=== PATIENT | female | born 1970 | race African-American/Black ===

== ENCOUNTER 2016-06-03 17:45 | Emergency (ER) | payer OTHER ==
--- NOTE | 2016-06-03 20:45 | RAD ---
PA AND LATERAL VIEWS OF CHEST: 06/03/2016 HISTORY: Fevers and chills for 3 days. FINDINGS: Two views of the chest demonstrate the lungs to be well-aerated. No evidence of active intrathoraci c disease seen. No evidence of effusions, pneumonia, or pneumothorax seen. IMPRESSION: Unremarkable two views chest. POS: [facility]
== END 2016-06-03 18:48 | disposition home or self-care (01) ==
LOC: NAV ERS 17:45
DX: J06.9 Acute upper respiratory infection, unspecified (principal); I10 Essential (primary) hypertension; E03.9 Hypothyroidism, unspecified; F31.9 Bipolar disorder, unspecified; F20.9 Schizophrenia, unspecified; Z79.899 Other long term (current) drug therapy
CPT/HCPCS: 71020; 93005

== ENCOUNTER 2016-08-23 13:28 | Emergency (ER) | payer OTHER ==
[2016-08-23] MEDS ORDERED: HYDROcodone/Acetaminophen 10/325 mg Tablet ONE (13:58)
[2016-08-23] MEDS ORDERED: Ibuprofen 800 MG TAB ONE (13:58)
--- NOTE | 2016-08-23 15:28 | RAD ---
LEFT HIP TWO VIEWS: History: 45-year-old female with left hip pain without known injury. FINDINGS: Very mild degenerative changes left hip joint. No fracture, dislocation, or other acute process. The re is a very slight bump on the lateral view at the subcapital region of the femoral neck. Thi s could possibly represent either a small focal degenerative osteophyte of a dysplastic bump that ca n be seen in association with femoral acetabular impingement. If that is a concern, follow up noneme rgent MRI study might be of benefit. IMPRESSION: Very mild degenerative changes left hip joint. Possible small dysplastic bump of the femoral neck wh ich could raise the possibility of femoral acetabular impingement. If that is a concern, follow non- emergent MRI. No fracture or dislocation. POS: [facility]
== END 2016-08-23 14:14 | disposition home or self-care (01) ==
LOC: NAV ERS 13:28
DX: M25.552 Pain in left hip (principal); F41.9 Anxiety disorder, unspecified; E66.9 Obesity, unspecified; G43.909 Migraine, unspecified, not intractable, without status migrainosus; E03.9 Hypothyroidism, unspecified; I10 Essential (primary) hypertension; F31.9 Bipolar disorder, unspecified; Z79.899 Other long term (current) drug therapy

== ENCOUNTER 2016-09-15 14:28 | Emergency (ER) | payer OTHER ==
[~2016-09-15 14:28] MED LIST: Iopamidol 370 76% 100 ML VIAL ONE
[2016-09-15] MEDS ORDERED: Sodium Chloride 0.9% 1,000 ML ONE (14:55)
[2016-09-15] MEDS ORDERED: Ondansetron HCl/PF 4 MG/2 ML Vial ONE (14:55)
[2016-09-15 15:04] LABS: Bilirubin Negative (Negative); Blood, Urine Negative (Negative); Clarity Clear (Clear); Glucose, Urine (Dipstick) Negative (Negative); Leukocyte Moderate (Negative); Nitrite Positive (Negative); Protein, Urine (Dipstick) Negative (Neg-Trace); Specific Gravity, Urine 1.015 (1.005-1.030); Urobilinogen 0.2 mg/dL (0.2-1.0); pH, Urine 7.5 (5.0-9.0)
[2016-09-15 15:11] LABS: Bacteria/HPF 3+ HPF (None Seen); RBC/HPF 0-3 HPF (0-3); Squamous Epithelial 0-3 HPF (0-3)
[2016-09-15 15:20] LABS: Pregnancy Test - Urine (BHCG) Negative (NEGATIVE)
[2016-09-15 15:21] LABS: Pregu Control Background? CLEAR/WHITE (CLR/WHITE); Pregu Control Bar Appear? YES (CONTROL BAR); Specific Gravity 1.015 (1.002-1.036)
[2016-09-15 15:27] LABS: #Basophils 0.1 thou/uL (0.0-0.2); #Eosinphils 0.3 thou/uL (0.0-0.7); #Lymphocytes 1.3 thou/uL (1.20-3.40); #Monocytes 0.6 thou/uL (0.11-0.59); #Neutrophils 3.7 thou/uL (1.40-6.50); %Basophils 0.9 % (0.0-1.0); %Eosinophils 5.1 % (0.0-10.0); %Lymphocytes 21.5 % (21.0-51.0); %Monocytes 10.7 % (0.0-10.0); %Neutrophils 61.8 % (42.0-75.0); Hemoglobin 12.6 g/dL (12.0-16.0); Mean Corpuscular HGB CONC 32.8 g/dL (32.0-36.0); Mean Corpuscular Hemoglobin 29.1 pg (27.0-31.0); Mean Corpuscular Volume 88.6 fl (81.0-99.0); Mean Platelet Volume 8.7 fL (7.4-10.4); Platelet Count 217 thou/uL (130-400); RBC Distribution Width 12.8 % (11.5-14.5); Red Blood Cell (RBC) Count 4.35 mill/uL (4.20-5.40)
[2016-09-15 15:27] LABS: Amphetamine Not Detected (NotDetected); Barbiturates Screen Not Detected (NotDetected); Benzodiazepine Screen Not Detected (NotDetected); Cocaine Metabolite Screen Not Detected (NotDetected); Medtox Control Line Valid? VALID (VALID); Methadone Not Detected (NotDetected); Methamphetamine Not Detected (NotDetected); Opiate Screen Not Detected (NotDetected); Oxycodone Screen Not Detected (NotDetected); Phencyclidine (PCP) Not Detected (NotDetected); THC/Cannabinoid Screen Not Detected (NotDetected); Tricyclic Screen Detected (NotDetected)
[2016-09-15] MEDS ORDERED: cefTRIAXone\\ROCEPHIN 2 GM VIAL ONE (15:41)
[2016-09-15] MEDS ORDERED: Sodium Chloride 0.9% 500 ML ONE (15:41)
[2016-09-15] MEDS ORDERED: Sodium Chloride 0.9% 100 ML ONE (15:41)
[2016-09-15 15:46] LABS: ALT (SGPT) 34 U/L (8-55); AST (SGOT) 34 U/L (5-34); Albumin 3.8 g/dL (3.5-5.0); Alkaline Phosphatase 132 U/L (40-150); Anion Gap 13 mmol/L (10-20); BUN (Urea Nitrogen) 13 mg/dL (7.0-18.7); Bilirubin, Total 0.2 mg/dL (0.2-1.2); Calc. Creatinine Clearance 0 mL/min (70-130); Calcium 9.3 mg/dL (7.8-10.44); Carbon Dioxide 22 mmol/L (22-29); Chloride 105 mmol/L (98-107); Estimated GFR-MDRD 72; Globulin 3.9 g/dL (2.4-3.5); Glucose 89 mg/dL (70-105); Potassium 4.2 mmol/L (3.5-5.1); Protein, Total 7.7 g/dL (6.0-8.3); Sodium 136 mmol/L (136-145)
--- NOTE | 2016-09-15 16:04 | CT ---
CT OF ABDOMEN AND PELVIS PERFORMED WITH INTRAVENOUS CONTRAST ENHANCEMENT: 09/15/16 HISTORY: Abdominal and back pain. COMPARISON: A 04/05/14 study. The lung bases are clear of infiltrative process. The liver and spleen as well as pancreas regions appear unremarkable. The gallbladder has been remov ed. Right and left adrenal glands and right and left kidneys are normal in size. There is a mild amount of stool present within the right colon. No significant periaortic or mesenteric adenopathy. Small f at containing periumbilical hernia is present. CT OF PELVIS PERFORMED WITH CONTRAST ENHANCEMENT: No evidence of adenopathy, mass or free fluid. The appendix is normal in size and retrocecal in loca tion. IMPRESSION: No acute abnormalities of the abdomen or pelvis. POS: [facility]
== END 2016-09-15 17:00 | disposition home or self-care (01) ==
LOC: NAV ERS 14:28
DX: N39.0 Urinary tract infection, site not specified (principal); G89.29 Other chronic pain; M54.5 Low back pain; M54.6 Pain in thoracic spine; G43.909 Migraine, unspecified, not intractable, without status migrainosus; E66.9 Obesity, unspecified; E03.9 Hypothyroidism, unspecified; I10 Essential (primary) hypertension; F31.9 Bipolar disorder, unspecified; F20.9 Schizophrenia, unspecified; Z79.899 Other long term (current) drug therapy
CPT/HCPCS: 51701; 74177; 80053; 80306; 81003; 81015; 81025; 85025; 87077; 87086; 87186; 96361; 96365; 96375; A4353; J0696; J2270; J2405; J7050

== ENCOUNTER 2016-09-28 16:04 | Emergency (ER) | payer OTHER ==
[2016-09-28 18:11] LABS: Bilirubin Negative (Negative); Blood, Urine Negative (Negative); Clarity Clear (Clear); Glucose, Urine (Dipstick) Negative (Negative); Leukocyte Negative (Negative); Nitrite Negative (Negative); Protein, Urine (Dipstick) Negative (Neg-Trace); Specific Gravity, Urine 1.015 (1.005-1.030); Urobilinogen 0.2 mg/dL (0.2-1.0)
[2016-09-28] MEDS ORDERED: Acetaminophen/Codeine 30-300mg Tablet ONE (18:44)
== END 2016-09-28 18:45 | disposition home or self-care (01) ==
LOC: NAV ERS 16:04
DX: M62.830 Muscle spasm of back (principal); E03.9 Hypothyroidism, unspecified; I10 Essential (primary) hypertension; F31.9 Bipolar disorder, unspecified; F20.9 Schizophrenia, unspecified; Z79.899 Other long term (current) drug therapy
CPT/HCPCS: 81003; 87086; 99283

== ENCOUNTER 2017-07-06 18:29 | Emergency (ER) | payer OTHER ==
[2017-07-06] MEDS ORDERED: Acetaminophen/Codeine 30-300mg Tablet ONE (19:09)
[2017-07-06 20:07] LABS: Bilirubin Negative (Negative); Blood, Urine Negative (Negative); Clarity Clear (Clear); Glucose, Urine (Dipstick) Negative (Negative); Leukocyte Negative (Negative); Nitrite Negative (Negative); Protein, Urine (Dipstick) Negative (Neg-Trace); Urobilinogen 0.2 mg/dL (0.2-1.0)
[2017-07-06 20:11] LABS: Pregnancy Test - Urine (BHCG) Negative (Negative); Pregu Control Background? CLEAR/WHITE (CLR/WHITE); Pregu Control Bar Appear? YES (CONTROL BAR)
== END 2017-07-06 20:55 | disposition home or self-care (01) ==
LOC: NAV ERS 18:29
DX: N32.81 Overactive bladder (principal); G43.909 Migraine, unspecified, not intractable, without status migrainosus; E03.9 Hypothyroidism, unspecified; I10 Essential (primary) hypertension; G89.29 Other chronic pain; F31.9 Bipolar disorder, unspecified; Z79.899 Other long term (current) drug therapy
CPT/HCPCS: 81003; 81025; 87077; 87086; 87186; 99284

== ENCOUNTER 2018-01-20 18:41 | Emergency (ER) | payer OTHER ==
[2018-01-20 19:29] LABS: Bilirubin Negative (Negative); Blood, Urine Negative (Negative); Glucose, Urine (Dipstick) Negative (Negative); Leukocyte Moderate (Negative); Nitrite Negative (Negative); Protein, Urine (Dipstick) Negative (Neg-Trace); Urobilinogen 0.2 mg/dL (0.2-1.0)
[2018-01-20 19:31] LABS: Clarity SL HAZY (Clear)
[2018-01-20 19:32] LABS: Pregnancy Test - Urine (BHCG) Negative (Negative); Pregu Control Background? CLEAR/WHITE (CLR/WHITE); Pregu Control Bar Appear? YES (CONTROL BAR)
[2018-01-20] MEDS ORDERED: Lorazepam 2 MG/ML VIAL ONE (19:35)
[2018-01-20 19:53] LABS: Bacteria/HPF 1+ HPF (None Seen); Squamous Epithelial 0-3 HPF (0-3)
[2018-01-20 19:57] LABS: #Eosinphils 0.3 thou/uL (0.0-0.7); #Monocytes 0.5 thou/uL (0.11-0.59); #Neutrophils 2.9 thou/uL (1.40-6.50); %Eosinophils 6.3 % (0.0-10.0); %Lymphocytes 21.2 % (21.0-51.0); %Monocytes 10.1 % (0.0-10.0); %Neutrophils 61.4 % (42.0-75.0); Hemoglobin 13.4 g/dL (12.0-16.0); Mean Corpuscular HGB CONC 31.7 g/dL (32.0-36.0); Mean Corpuscular Hemoglobin 27.2 pg (27.0-31.0); Mean Platelet Volume 10.3 fL (7.4-10.4); Platelet Count 195 thou/uL (130-400); RBC Distribution Width 12.9 % (11.5-14.5); Red Blood Cell (RBC) Count 4.93 mill/uL (4.20-5.40); White Blood Cell (WBC) Count 4.7 thou/uL (4.8-10.8)
[2018-01-20 20:04] LABS: CKMB 0.8 ng/mL (0-6.6); Troponin I 0.011 ng/mL (< 0.028)
[2018-01-20] MEDS ORDERED: Ketorolac Tromethamine 30 MG/ML VIAL ONE (20:10)
[2018-01-20 20:17] LABS: ALT (SGPT) 18 U/L (8-55); AST (SGOT) 25 U/L (5-34); Albumin 3.8 g/dL (3.5-5.0); Alkaline Phosphatase 106 U/L (40-150); Anion Gap 13 mmol/L (10-20); BUN (Urea Nitrogen) 17 mg/dL (7.0-18.7); Bilirubin, Total 0.4 mg/dL (0.2-1.2); CK (CPK) 203 U/L (29-168); Calc. Creatinine Clearance 0 mL/min (70-130); Carbon Dioxide 24 mmol/L (22-29); Chloride 109 mmol/L (98-107); Estimated GFR-MDRD 47; Globulin 4.2 g/dL (2.4-3.5); Glucose 101 mg/dL (70-105); Potassium 3.6 mmol/L (3.5-5.1); Sodium 142 mmol/L (136-145)
--- NOTE | 2018-01-20 21:27 | RAD ---
CHEST ONE VIEW: 01/20/18 INDICATION: Chest pain and cough. COMPARISON: Prior exam dated 12/09/17. FINDINGS: There are low lung volumes. There are patchy air space opacities bilaterally. Heart size is within no rmal limits. No pleural effusion or pneumothorax is evident. No acute osseous abnormality is evident. IMPRESSION: Patchy bilateral air space opacities is suspicious for atypical pneumonia. No emmanuelle pleural effusion or pneumothorax is evident. Continued radiographic followup is recommended. POS: [facility]
[2018-01-20] MEDS ORDERED: Sodium Chloride 0.9% 1,000 ML ONE (21:34)
[2018-01-20 21:57] LABS: Acetaminophen Less than 6.0 mcg/mL (10.0-30.0); Alcohol Less than 10 mg/dL (Less than 10); Salicylate Less than 8.0 mg/dL (15.0-30.0)
[2018-01-20 22:03] LABS: Amphetamine Not Detected (NotDetected); Barbiturates Screen Not Detected (NotDetected); Benzodiazepine Screen Not Detected (NotDetected); Cocaine Metabolite Screen Not Detected (NotDetected); Medtox Control Line Valid? VALID (VALID); Methadone Not Detected (NotDetected); Methamphetamine Not Detected (NotDetected); Opiate Screen Not Detected (NotDetected); Oxycodone Screen Not Detected (NotDetected); Phencyclidine (PCP) Not Detected (NotDetected); THC/Cannabinoid Screen Not Detected (NotDetected); Tricyclic Screen Detected (NotDetected)
[2018-01-21] MEDS ORDERED: Acetaminophen 500 MG TAB ONE (00:40)
== END 2018-01-21 00:45 | disposition home or self-care (01) ==
LOC: NAV ERS 18:41
DX: J18.9 Pneumonia, unspecified organism (principal); F32.9 Major depressive disorder, single episode, unspecified; F43.20 Adjustment disorder, unspecified; G43.909 Migraine, unspecified, not intractable, without status migrainosus; E03.9 Hypothyroidism, unspecified; I10 Essential (primary) hypertension; F20.9 Schizophrenia, unspecified; Z79.899 Other long term (current) drug therapy
CPT/HCPCS: 71045; 80053; 80306; 80307; 81003; 81015; 81025; 82550; 82553; 84484; 85025; 93005; 96361; 96374; 96375; J1885; J2060; J7050

== ENCOUNTER 2018-02-06 19:15 | Emergency (ER) | payer OTHER ==
[2018-02-06 20:41] LABS: Hemoglobin 12.7 g/dL (12.0-16.0); Mean Corpuscular HGB CONC 30.5 g/dL (32.0-36.0); Mean Corpuscular Hemoglobin 25.9 pg (27.0-31.0); Mean Platelet Volume 8.7 fL (7.4-10.4); Platelet Count 214 thou/uL (130-400)
[2018-02-06 20:42] LABS: #Basophils 0.1 thou/uL (0.0-0.2); #Eosinphils 0.3 thou/uL (0.0-0.7); #Lymphocytes 0.7 thou/uL (1.20-3.40); #Monocytes 0.4 thou/uL (0.11-0.59); #Neutrophils 1.6 thou/uL (1.40-6.50); %Basophils 1.9 % (0.0-1.0); %Eosinophils 8.7 % (0.0-10.0); %Monocytes 12.1 % (0.0-10.0); %Neutrophils 54.3 % (42.0-75.0)
[2018-02-06 20:46] LABS: ALT (SGPT) 51 U/L (8-55); AST (SGOT) 64 U/L (5-34); Albumin 3.8 g/dL (3.5-5.0); Alcohol Less than 10 mg/dL (Less than 10); Alkaline Phosphatase 182 U/L (40-150); Anion Gap 13 mmol/L (10-20); BUN (Urea Nitrogen) 15 mg/dL (7.0-18.7); Bilirubin, Total 0.5 mg/dL (0.2-1.2); Calc. Creatinine Clearance 0 mL/min (70-130); Calcium 9.3 mg/dL (7.8-10.44); Carbon Dioxide 23 mmol/L (22-29); Chloride 106 mmol/L (98-107); Estimated GFR-MDRD 41; Globulin 4.1 g/dL (2.4-3.5); Glucose 96 mg/dL (70-105); Potassium 3.7 mmol/L (3.5-5.1); Protein, Total 7.9 g/dL (6.0-8.3); Salicylate Less than 8.0 mg/dL (15.0-30.0); Sodium 138 mmol/L (136-145)
[2018-02-06 20:47] LABS: MDiff Complete? YES; Manual Diff?? NO; Troponin I Less than 0.010 ng/mL (< 0.028)
[2018-02-06 21:13] LABS: Bilirubin Negative (Negative); Blood, Urine Negative (Negative); Clarity Clear (Clear); Glucose, Urine (Dipstick) Negative (Negative); Leukocyte Negative (Negative); Nitrite Negative (Negative); Pregnancy Test - Urine (BHCG) Negative (Negative); Pregu Control Background? CLEAR/WHITE (CLR/WHITE); Pregu Control Bar Appear? YES (CONTROL BAR); Protein, Urine (Dipstick) Negative (Neg-Trace); pH, Urine 5.5 (5.0-9.0)
[2018-02-06 21:26] LABS: Amphetamine Not Detected (NotDetected); Barbiturates Screen Detected (NotDetected); Benzodiazepine Screen Not Detected (NotDetected); Cocaine Metabolite Screen Not Detected (NotDetected); Medtox Control Line Valid? VALID (VALID); Methadone Not Detected (NotDetected); Methamphetamine Not Detected (NotDetected); Opiate Screen Not Detected (NotDetected); Oxycodone Screen Not Detected (NotDetected); Phencyclidine (PCP) Not Detected (NotDetected); THC/Cannabinoid Screen Not Detected (NotDetected); Tricyclic Screen Detected (NotDetected)
[2018-02-06] MEDS ORDERED: Promethazine 25 MG TAB ONE (21:27)
[2018-02-06] MEDS ORDERED: Sodium Chloride 0.9% 1,000 ML ONE (21:27)
== END 2018-02-06 22:50 | disposition home or self-care (01) ==
LOC: NAV ERS 19:15
DX: F41.9 Anxiety disorder, unspecified (principal); I10 Essential (primary) hypertension; E03.9 Hypothyroidism, unspecified; F31.9 Bipolar disorder, unspecified; Z79.899 Other long term (current) drug therapy
CPT/HCPCS: 80053; 80306; 80307; 81003; 81025; 83690; 84443; 84484; 85025; 93005; 94760; 96360; J7050

== ENCOUNTER 2018-02-09 16:08 | Emergency (ER) | payer OTHER ==
[2018-02-09] MEDS ORDERED: Sodium Chloride 0.9% 1,000 ML ONE ×2 (17:07→17:10)
[2018-02-09] MEDS ORDERED: Ondansetron PF 4 MG/2 ML Vial ONE (17:08)
[2018-02-09 17:09] LABS: #Eosinphils 0.1 thou/uL (0.0-0.7); #Lymphocytes 0.6 thou/uL (1.20-3.40); #Monocytes 0.4 thou/uL (0.11-0.59); #Neutrophils 3.7 thou/uL (1.40-6.50); %Basophils 0.4 % (0.0-1.0); %Eosinophils 2.1 % (0.0-10.0); %Lymphocytes 11.5 % (21.0-51.0); %Monocytes 8.5 % (0.0-10.0); %Neutrophils 77.5 % (42.0-75.0); Hemoglobin 13.2 g/dL (12.0-16.0); Mean Corpuscular HGB CONC 30.5 g/dL (32.0-36.0); Mean Corpuscular Volume 85.3 fL (78.0-98.0); Mean Platelet Volume 7.4 fL (7.4-10.4); Platelet Count 214 thou/uL (130-400); RBC Distribution Width 13.3 % (11.5-14.5); Red Blood Cell (RBC) Count 5.06 mill/uL (4.20-5.40); White Blood Cell (WBC) Count 4.8 thou/uL (4.8-10.8)
[2018-02-09 17:31] LABS: ALT (SGPT) 61 U/L (8-55); AST (SGOT) 86 U/L (5-34); Albumin 3.6 g/dL (3.5-5.0); Alkaline Phosphatase 225 U/L (40-150); Anion Gap 13 mmol/L (10-20); BUN (Urea Nitrogen) 13 mg/dL (7.0-18.7); Bilirubin, Total 0.6 mg/dL (0.2-1.2); Calc. Creatinine Clearance 0 mL/min (70-130); Calcium 9.6 mg/dL (7.8-10.44); Carbon Dioxide 23 mmol/L (22-29); Chloride 109 mmol/L (98-107); Estimated GFR-MDRD 40; Globulin 4.4 g/dL (2.4-3.5); Glucose 130 mg/dL (70-105); Lipase 34 U/L (8-78); Potassium 3.6 mmol/L (3.5-5.1); Sodium 141 mmol/L (136-145)
== END 2018-02-09 18:48 | disposition home or self-care (01) ==
LOC: NAV ERS 16:08
DX: E86.0 Dehydration (principal); K75.9 Inflammatory liver disease, unspecified; N19 Unspecified kidney failure; I10 Essential (primary) hypertension; G43.909 Migraine, unspecified, not intractable, without status migrainosus
CPT/HCPCS: 80053; 83690; 85025; 96361; 96372; 96374; J2405; J7050

== ENCOUNTER 2018-03-27 09:53 | Emergency (ER) | payer OTHER | END 2018-03-27 10:50 | disposition home or self-care (01) | LOC: NAV ERS 09:53 | DX: L50.9 Urticaria, unspecified (principal); F41.9 Anxiety disorder, unspecified; E66.9 Obesity, unspecified; E03.9 Hypothyroidism, unspecified; G43.909 Migraine, unspecified, not intractable, without status migrainosus; I10 Essential (primary) hypertension; Z79.899 Other long term (current) drug therapy | CPT/HCPCS: 99282 ==